=== PATIENT | female | born 1955 | race Caucasian/White ===

== ENCOUNTER 2019-10-18 00:09 | Outpatient (CLI) | payer OTHER, SELFPAY ==
[2019-10-18 18:10] LABS: SARS-CoV-2 RNA PCR Negative
== END 2019-10-18 00:10 | disposition home or self-care (01) ==
LOC: ANHCOVIDDT 00:09
PROVIDERS: Visit Provider Urology
DX: Z20.828 Contact with and (suspected) exposure to other viral communicable diseases (principal); Z01.812 Encounter for preprocedural laboratory examination
CPT/HCPCS: 87635; C9803; U0003

== ENCOUNTER 2019-10-20 00:07 | Day surgery (SDC) | payer OTHER, SELFPAY ==
[2019-07-14 13:57] VITALS: BMI 25.0
[2019-10-10 16:48] VITALS: BMI 25.0
[2019-10-20] VITALS (7 sets, daily range): BP systolic 139–158; BP diastolic 67–76; PULSE 72–84; RESP 14–16; TEMP 36.2–36.8; O2SAT 96–100
--- NOTE | 2019-10-20 07:12 | WPDHPUPDATE1 ---
History and Physical Update Update Date/Time: 10/20/19 07:12 History and Physical has been reviewed, including an updated exam of the patient. There are NO changes in the patient's condition. Risks, benefits, and alternatives have been discussed and questions answered. Patient agrees to proceed with procedure.
[2019-10-20] MEDS: LACTATED RINGERS 1,000 ML 30 ML IV CONT (10:00)
--- NOTE | 2019-10-20 10:04 | WPDANESEPPF ---
Anes - Initial Pre Proc Eval Procedure: Operation Date: 10/20/19 11:30 Proposed Procedures p Rectocele Repair - Ricco Perez MD s Urethral Sling - Ricco Perez MD Date/Time: 10/20/19 10:04 Surgeon: Ricco Perez MD Pre Op Diagnosis: Rectocele Stress/ Incontinence Patient Data Age: 64 Gender: F Height: 5 ft 6 in Weight: 72 kg Allergies Allergy/AdvReac Type Severity Reaction Status Date / Time No Known Allergies Allergy Verified 10/20/19 09:38 Home Medications Medication Instructions Recorded Confirmed Type atorvastatin 20 mg PO DAILY 07/14/19 10/20/19 History calcium carbonate-vitamin D3 1 cap PO DAILY 07/14/19 10/20/19 History [Calcium 600 + D(3)] dexlansoprazole [Dexilant] 60 mg PO DAILY 07/14/19 10/20/19 History escitalopram oxalate 10 mg PO DAILY 07/14/19 10/20/19 History losartan 25 mg PO DAILY 07/14/19 10/20/19 History multivitamin 1 tablet PO DAILY 07/14/19 10/20/19 History Patient hx anesthesia problems: post op nausea/vomiting Family hx anesthesia problems: none PMFSH Past Medical History Medical History Anxiety GERD (gastroesophageal reflux disease) HTN (hypertension) Hyperlipidemia Surgical History Surgical History (Updated 10/20/19 @ 10:13 by Torsten Mendosa MD) H/O: hysterectomy Anes - Eval Final PreProcedure Day of Procedure 10/20/19 10:04 Patient weight: overweight Heart: regular rate and rhythm Lungs: clear to auscultation Airway: Mallampati scale class II Neurological: alert and oriented Last oral intake: >/= 8 hours ASA classification: II Emergent: no Anesthetic plan: proceed Anesthesia type and monitoring: general LMA and standard monitoring Informed Consent: The patient's anesthetic plan and its attendant risks and benefits were discussed with the patient/family/POA. Questions were solicited and answers provided to the satisfaction of the patient/family/POA.
[2019-10-20] MEDS: ceFAZolin 2 GM/D5W 50 ML 2 GM/50 ML BAG IVPB (11:40)
[2019-10-20] MEDS: BUPIVACAINE/EPINEPHRINE 0.25% 50 ML VIAL 30 ML INFILTRATE (11:52)
--- NOTE | 2019-10-20 12:23 | P.OP_ITS ---
Procedure Note - Detailed Date of procedure: 10/20/19 Pre-op diagnosis: Rectocele Stress/ Incontinence Rectocele Stress urinary incontinence Post-op diagnosis: same Procedure performed: Rectocele repair/posterior colporrhaphy Trans obturator mid urethral sling Description of procedure: She understands the risks of bleeding, infection, damage to surrounding organs, dyspareunia, and recurrence of prolapse. She agrees to proceed. She was correctly identified and informed consent was obtained. She is brought to the operating room. She was given general anesthesia. She was placed in the dorsal lithotomy position. She was prepped and draped in a sterile fashion. She was given appropriate perioperative antibiotics. A time-out was performed. A [place] retractor was placed. A Miner catheter was in place. I grasped the rectocele with Allis clamps. I infiltrated the subcutaneous tissues with local mixed with saline. I made a midline incision on the posterior vaginal wall. I dissected the mucosa off the underlying fascial structures out laterally. And then ports he apex. There is no sign of any violation to surrounding organs. I then performed a standard rectocele repair. I used interrupted 0 Vicryl sutures. This reduced the rectocele. I then trimmed excess vaginal mucosa. I then closed the mucosa with a running 2 0 Vicryl suture. There was excellent hemostasis. There was reduction of the rectocele. I then removed the [place] retractor. I then marked on the inner thigh incisions towards the sling I then anesthetized those incisions and anesthetize the anterior vaginal wall over the mid urethra. I made a 1 cm incision. I dissected out laterally taking great care not to injure the urethra vaginal wall. I passed the helical trocars. First on the left than on the right. Sling was connected to the trocars and brought out the thigh incision. I tensioned the sling appropriately. I cut and with plastic sheaths. I then closed the incision with 2 0 Vicryl. On cystoscopy showed no tumor, stones, trabeculations, abnormal red patches, or foreign bodies ureteral orifices were normal. No foreign body in the bladder urethra. I cut the excess sling material. I closed incisions glue. A rectal exam confirmed no injury to the rectum. Implants: None Anesthesia: GLMA Surgeon: Ricco Perez MD Drains: No Packing: No Pathology: none sent Complications: No immediate complications Condition: stable Disposition: PACU
== END 2019-10-20 13:52 | disposition home or self-care (01) ==
PROVIDERS: PCP Internal Medicine; Visit Provider Urology
PROC: 0JQC0ZZ Repair Pelvic Region Subcutaneous Tissue and Fascia, Open Approach (ICD-10-PCS; CPT 45560; principal; 2019-10-20 11:30)
PROC: (CPT 57250; 2019-10-20 11:30)
DX: N81.6 Rectocele (principal); N39.3 Stress incontinence (female) (male); I10 Essential (primary) hypertension; E78.5 Hyperlipidemia, unspecified; K21.9 Gastro-esophageal reflux disease without esophagitis; F41.9 Anxiety disorder, unspecified
CPT/HCPCS: 57250; 57288; A9270; C1771; J0690; J1100; J2405; J2704; J3010; J7030; J7120